=== PATIENT | female | born 2000 | race Two or more races ===

== ENCOUNTER 2024-07-15 13:36 | Emergency (ER) | payer OTHER ==
[~2024-07-15] VITALS: Ht 154.9 cm; Wt 65.3 kg
[~2024-07-15 13:36] MED LIST: DOXYCYCLINE HY100 M2 PO; IBU600 MG PO; PROVERA2.5 MG
[2024-07-15 13:43] VITALS: BP 134/85; O2SAT 100
[2024-07-15 16:24] LABS: MEAN CELL VOLUME 83.5 fL (80.00-100.00); MEAN CORPUSCULAR HEMOGLOBIN 27.9 pg (27.00-32.0); MEAN CORPUSCULAR HGB CONC 33.4 g/dl (32.0-36.0); PLATELET COUNT 318 K/uL (150-450); RED BLOOD COUNT 5.03 M/uL (4.00-6.00); RED CELL DISTRIBUTION WIDTH 14.6 % (11.5-14.5)
[2024-07-15 16:41] LABS: INR 0.96; PARTIAL THROMBOPLASTIN TIME 26.5 SECONDS (22.0-34.0); PROTHROMBIN TIME 10.5 SECONDS (9.0-11.5)
[2024-07-15 16:46] LABS: ALBUMIN 4.2 gm/dL (3.4-5.0); BILIRUBIN TOTAL 0.31 mg/dL (0.3-1.2); CALCIUM 9.7 mg/dL (8.5-10.1); CREATININE SERUM 0.67 mg/dL (0.55-1.02); GFR 108.13; GLOBULINA 4.3 G/DL (2.4-3.5); POTASSIUM 4.2 mEq/L (3.5-5.1); TOTAL PROTEIN 8.5 gm/dL (6.4-8.2)
== END 2024-07-15 17:28 | disposition home or self-care (01) ==
LOC: ER 13:39
PROVIDERS: General Practice
DX: N92.3 Ovulation bleeding (principal)